=== PATIENT | male | born 1980 | race Two or more races ===

== ENCOUNTER 2017-08-31 17:42 | Emergency (ER) | payer BC, MEDICAID ==
[~2017-08-31] VITALS: Ht 175.3 cm; Wt 81.6 kg
[2017-08-31] MEDS ORDERED: HYDROcodone-ACET 5/325MG TAB PO ONE (21:00)
[2017-08-31 22:20] VITALS: BP 120/82
== END 2017-08-31 23:31 | disposition home or self-care (01) ==
LOC: ER 17:42 → EDBD 17:42 → ER 23:31
DX: M25.511 Pain in right shoulder (principal); M54.5 Low back pain; M54.2 Cervicalgia; V49.49XA Driver injured in collision with other motor vehicles in traffic accident, initial encounter; Y93.89 Activity, other specified; Y99.8 Other external cause status; Y92.488 Other paved roadways as the place of occurrence of the external cause
CPT/HCPCS: 72125